=== PATIENT | female | born 1970 ===

== ENCOUNTER 2019-11-22 02:11 | Inpatient (IN) | payer MEDICARE ==
[2019-11-22] MEDS ORDERED: HALOPERIDOL LACTATE 5 MG/1 ML INJ IM PRN (07:22)
[2019-11-22] MEDS ORDERED: LORazepam 2 MG/ML VIAL IM PRN (07:22)
[2019-11-22] MEDS ORDERED: diphenhydrAMINE 50 MG/ML VIAL IM PRN (07:23)
[2019-11-22] MEDS ORDERED: MELATONIN 5 MG TAB PO PRN (20:54)
[2019-11-22] MEDS: carvediloL 25 MG TAB PO SCH (21:53)
[2019-11-22] MEDS: traZODone 50 MG TAB PO SCH (21:55)
[2019-11-22] MEDS ORDERED: risperiDONE 0.25 MG TAB PO SCH (22:00)
[2019-11-22 23:47] LABS: Basophils % (Auto) 0.3 % (0.0-1.8); Eosinophils # (Auto) 0.1 K/mm3 (0.0-0.4); Eosinophils % (Auto) 1.1 % (0.0-4.3); Hematocrit 36.7 % (30.3-42.9); Hemoglobin 11.8 gm/dl (10.1-14.3); Lymphocytes # (Auto) 1.5 K/mm3 (1.2-5.4); Lymphocytes % (Auto) 17.8 % (13.4-35.0); Mean Corpuscular HGB Conc 32 % (30-34); Mean Corpuscular Volume 88 fl (79-97); Monocytes # (Auto) 0.6 K/mm3 (0.0-0.8); Monocytes % (Auto) 7.6 % (0.0-7.3); Platelet Count 257 K/mm3 (140-440); Red Blood Count 4.15 M/mm3 (3.65-5.03); Red Cell Distribution Width 17.9 % (13.2-15.2)
[2019-11-23 00:02] LABS: BUN/Creatinine Ratio 14; Blood Urea Nitrogen 13 mg/dL (7-17); Calcium 8.7 mg/dL (8.4-10.2); Hemolysis Index 3
[2019-11-23 04:15] LABS: Chol/HDL Ratio 4.87 %; HDL Cholesterol 31 mg/dL (40-59); LDL Cholesterol,Direct 106 mg/dL (50-130)
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
[2019-11-23] MEDS: SPIRONOLACTONE 25 MG TAB PO SCH (10:04)
[2019-11-23] MEDS: BENZTROPINE 0.5 MG TAB PO SCH (10:04)
[2019-11-23] MEDS: LISINOPRIL 20 MG TAB PO SCH (10:04)
[2019-11-23] MEDS: carvediloL 25 MG TAB PO SCH ×2 (10:05→21:41)
[2019-11-23] MEDS: DIVALPROEX DR 125 MG TAB PO SCH ×2 (10:10→21:43)
[2019-11-23] MEDS: risperiDONE 0.25 MG TAB PO SCH ×2 (10:10→21:41)
[2019-11-23] MEDS: NICOTINE 21 MG/24 HR PATCH TD SCH (10:10)
--- NOTE | 2019-11-23 10:20 | Consultation ---
History of Present Illness - Reason for Consult Consult date: 11/23/19 Medical management Requesting physician: LONYN CADET - History of Present Illness Patient is a 49 year old female admitted with Paranoid schizophrenia. Per record the patient at outside facility refused to take meds, sighting being and in labor. she was reportedly yelling and cursing at someone who is not there and mumbling with hard to understand words and tangetial speech. accusing the staff of trying to kidnap her. calling staff other peoples names and preoccupied by the name rachana Gooden Labs from transferring facility reviewed. Acute Cystitis Acute Psuchosis SCHIZOPHRENIA/Schizoaffective disorder Pyschosis with Paranopid, Delusional and Bizarre behavior HTN OBESITY Hyperlipidemia Past History Past Medical History: other Past Surgical History: Other ( DOCUMENTED) Social history: no significant social history Family history: no significant family history Medications and Allergies Allergies Allergy/AdvReac Type Severity Reaction Status Date / Time No Known Allergies Allergy Unverified 11/22/19 02:27 Home Medications Medication Instructions Recorded Confirmed Last Taken Type Aspirin 81 mg PO DAILY 11/22/19 11/23/19 Unknown History Atorvastatin [Lipitor Tab] 40 mg PO DAILY 11/22/19 11/22/19 Unknown History Benztropine [Cogentin] 1 mg PO UNK 11/22/19 11/23/19 Unknown History Nitrofurantoin Macrocrystal 100 mg PO Q12H 11/22/19 11/22/19 11/21/19 22:00 History [Nitrofurantoin] 100 MG Spironolactone [Aldactone] 25 mg PO DAILY 11/22/19 11/22/19 Unknown History carvediloL [Coreg] 37.5 mg PO BID 11/22/19 11/22/19 Unknown History lisinopriL [Zestril TAB] 20 mg PO DAILY 11/22/19 11/22/19 Unknown History Montelukast [Singulair] 10 mg PO QPM 11/23/19 11/23/19 Unknown History Active Meds: Active Medications Atorvastatin Calcium (Lipitor) 40 mg PO DAILY [facility] Last Admin: 11/23/19 10:04 Dose: 40 mg Documented by: Benztropine Mesylate (Cogentin) 0.5 mg PO DAILY [facility] Last Admin: 11/23/19 10:04 Dose: 0.5 mg Documented by: Carvedilol (Coreg) 37.5 mg PO BID [facility] Last Admin: 11/23/19 10:05 Dose: 37.5 mg Documented by: Diphenhydramine HCl (Benadryl) 50 mg IM Q6H PRN PRN Reason: agitation Divalproex Sodium (Depakote Dr) 125 mg PO BID [facility] Last Admin: 11/23/19 10:10 Dose: 125 mg Documented by: Haloperidol Lactate (Haldol) 5 mg IM Q6H PRN PRN Reason: Agitation Lisinopril (Zestril) 20 mg PO DAILY [facility] Last Admin: 11/23/19 10:04 Dose: 20 mg Documented by: Lorazepam (Ativan) 2 mg IM Q6H PRN PRN Reason: Agitation Melatonin (Melatonin) 5 mg PO QHS PRN PRN Reason: Sleep Montelukast Sodium (Singulair) 10 mg PO QPM [facility] Nicotine (Habitrol) 21 mg TD QDAY [facility] Last Admin: 11/23/19 10:10 Dose: 21 mg Documented by: Risperidone (Risperdal) 0.5 mg PO BID [facility] Last Admin: 11/23/19 10:10 Dose: 0.5 mg Documented by: Spironolactone (Aldactone) 25 mg PO DAILY [facility] Last Admin: 11/23/19 10:04 Dose: 25 mg Documented by: Trazodone HCl (Desyrel) 50 mg PO QHS [facility] Last Admin: 11/22/19 21:55 Dose: 50 mg Documented by: Review of Systems ROS unobtainable: due to mental status Exam - Physical Exam Narrative exam: VITAL SIGNS: Reviewed. GENERAL: The patient appears normally developed, Vital signs as documented. HEAD: No signs of head trauma. EYES: Pupils are equal. Extraocular motions intact. EARS: Hearing grossly intact. MOUTH: Oropharynx is normal. NECK: No adenopathy, no JVD. CHEST: Chest with clear breath sounds bilaterally. No wheezes, rales, or rhonchi. CARDIAC: Regular rate and rhythm. S1 and S2, without murmurs, gallops, or rubs. VASCULAR: No Edema. Peripheral pulses normal and equal in all extremities. ABDOMEN: Soft, non tender and non distended. No rebound or guarding, and no masses palpated. Bowel Sounds normal. MUSCULOSKELETAL: Good range of motion of all major joints. Extremities without clubbing, cyanosis or edema. NEUROLOGIC EXAM: Alert and oriented x 3 No focal sensory or strength deficits. Speech normal. Follows commands. PSYCHIATRIC: Mood normal. SKIN: detial exam as documented in skin assessment - Constitutional Vitals: Temp Pulse Resp BP Pulse Ox 98.0 F 81 18 127/76 91 11/23/19 08:23 11/23/19 08:23 11/23/19 08:23 11/23/19 08:23 11/23/19 08:23 Results - Labs CBC & Chem 7: 11/22/19 23:07 11/22/19 23:07 Labs: Abnormal lab results 11/22/19 11/22/19 11/22/19 Range/Units 16:46 23:07 23:07 RDW 17.9 H (13.2-15.2) % [place] % (Auto) 7.6 H (0.0-7.3) % Seg Neutrophils % 73.2 H (40.0-70.0) % Glucose 125 H (65-100) mg/dL POC Glucose 115 H (70-105) HDL Cholesterol 31 L (40-59) mg/dL Assessment and Plan Patient is a 49 year old female admitted with Paranoid schizophrenia. Per record the patient at outside facility refused to take meds, sighting being and in labor. she was reportedly yelling and cursing at someone who is not there and mumbling with hard to understand words and tangetial speech. accusing the staff of trying to kidnap her. calling staff other peoples names and preoccupied by the name rachana Gooden Labs from transferring facility reviewed. Acute Cystitis Acute Psychosis SCHIZOPHRENIA/Schizoaffective disorder Pyschosis with Paranopid, Delusional and Bizarre behavior HTN OBESITY Hyperlipidemia Plan Continue current management plan. Check urinalysis Appears patient may have been treated in outside facility We will also check TSH if not already checked Resume appropriate home medications Encourage ambulation for DVT prophylaxis
[2019-11-23] MEDS: MONTELUKAST 10 MG TAB PO SCH (18:05)
[2019-11-23] MEDS: traZODone 50 MG TAB PO SCH (21:43)
--- NOTE | 2019-11-24 07:36 | Progress Note ---
Subjective Date of service: 11/24/19 Principal diagnosis: Acute Psychosis Subjective Comment: The patient's medical record was reviewed and the patient's progress was discussed with the nursing staff. The nurse note states the patient is labile and noted with flat affect. Speech incongruent to situation. During my interview with the patient this morning, she is in her room, awake. She is a/o x 3. Her affect is flat. She's easier to follow today than yesterday. She's more lucid. She believes she's admitted for "stomach cramps." The patient states, "I think I'm ." She says, "they told me not to think like that, but I do." When redirecting the patient and stating to her that she was not , she replies, "Okay, I'm not going to worry you with it." She denies SI/HI. She also denies hallucinations of any kind. She describes her mood, as "okay." She denies any problems with her sleep cycle or appetite. Reason for continued inpatient treatment: The patient is delusional REVIEW OF SYSTEMS Constitutional: Negative for weight loss ENT: Negative for stridor Respiratory: Negative for cough or hemoptysis All other systems reviewed and are negative MENTAL STATUS EXAMINATION General Appearance: Dressed appropriately Behavior: Calm and Cooperative. Fair eye contact. Mood: "okay" Affect: Flat Speech: Normal tome and pace Thought Process: Goal directed Thought Content: Suicidal Ideation: Denies Homicidal Ideation: Denies Hallucinations: Denies Delusions: Yes Insight and Judgment: Limited Memory/Cognition: Limited Assessment Acute Psychosis Treatment Plan Patient will be admitted for inpatient psychiatric evaluation, medication adjustment and close monitoring The patient's behavior, mood, sleep and appetite will be closely monitored. Patient will be enrolled in individual and group therapeutic sessions and encouraged to attend. Patient will be provided with a safe and structured environment. Patient's physical health needs will be addressed by the Hospitalist. Hospitalist Consulted Labs including CBC, CMP, Lipid profile and Hemoglobin A1C ordered Social Assessment will be completed and the Clinical Data Research will work with patient and family to ensure a suitable and safe disposition Medication adjustment will be made as clinically indicated Usual Wellness Yazidism/Preservation: Increase Risperidone 1mg po BID The patient agreed on the treatment plan, understood the risk, benefit, alternative treatment, potential consequence of no treatment, and gave informed consent. Estimated period of time patient will need to remain in the hospital: [5] Plan for post-hospital care: [Outpatient] Medications and Allergies Allergies Allergy/AdvReac Type Severity Reaction Status Date / Time No Known Allergies Allergy Unverified 11/22/19 02:27 Home Medications Medication Instructions Recorded Confirmed Last Taken Type Aspirin 81 mg PO DAILY 11/22/19 11/23/19 Unknown History Atorvastatin [Lipitor Tab] 40 mg PO DAILY 11/22/19 11/22/19 Unknown History Benztropine [Cogentin] 1 mg PO UNK 11/22/19 11/23/19 Unknown History Nitrofurantoin Macrocrystal 100 mg PO Q12H 11/22/19 11/22/19 11/21/19 22:00 History [Nitrofurantoin] 100 MG Spironolactone [Aldactone] 25 mg PO DAILY 11/22/19 11/22/19 Unknown History carvediloL [Coreg] 37.5 mg PO BID 11/22/19 11/22/19 Unknown History lisinopriL [Zestril TAB] 20 mg PO DAILY 11/22/19 11/22/19 Unknown History Montelukast [Singulair] 10 mg PO QPM 11/23/19 11/23/19 Unknown History Active Meds: Active Medications Atorvastatin Calcium (Lipitor) 40 mg PO DAILY [facility] Last Admin: 11/23/19 10:04 Dose: 40 mg Documented by: Benztropine Mesylate (Cogentin) 0.5 mg PO DAILY [facility] Last Admin: 11/23/19 10:04 Dose: 0.5 mg Documented by: Carvedilol (Coreg) 37.5 mg PO BID [facility] Last Admin: 11/23/19 21:41 Dose: 37.5 mg Documented by: Diphenhydramine HCl (Benadryl) 50 mg IM Q6H PRN PRN Reason: agitation Divalproex Sodium (Depakote Dr) 125 mg PO BID [facility] Last Admin: 11/23/19 21:43 Dose: 125 mg Documented by: Haloperidol Lactate (Haldol) 5 mg IM Q6H PRN PRN Reason: Agitation Lisinopril (Zestril) 20 mg PO DAILY [facility] Last Admin: 11/23/19 10:04 Dose: 20 mg Documented by: Lorazepam (Ativan) 2 mg IM Q6H PRN PRN Reason: Agitation Melatonin (Melatonin) 5 mg PO QHS PRN PRN Reason: Sleep Montelukast Sodium (Singulair) 10 mg PO QPM [facility] Last Admin: 11/23/19 18:05 Dose: 10 mg Documented by: Nicotine (Habitrol) 21 mg TD QDAY [facility] Last Admin: 11/23/19 10:10 Dose: 21 mg Documented by: Risperidone (Risperdal) 0.5 mg PO BID [facility] Last Admin: 11/23/19 21:41 Dose: 0.5 mg Documented by: Spironolactone (Aldactone) 25 mg PO DAILY [facility] Last Admin: 11/23/19 10:04 Dose: 25 mg Documented by: Trazodone HCl (Desyrel) 50 mg PO QHS [facility] Last Admin: 11/23/19 21:43 Dose: 50 mg Documented by: Results - Results Labs/Vitals: Laboratory Last Values WBC 8.4 K/mm3 (4.5-11.0) 11/22/19 23:07 RBC 4.15 M/mm3 (3.65-5.03) 11/22/19 23:07 Hgb 11.8 gm/dl (10.1-14.3) 11/22/19 23:07 Hct 36.7 % (30.3-42.9) 11/22/19 23:07 MCV 88 fl (79-97) 11/22/19 23:07 MCH 28 pg (28-32) 11/22/19 23:07 MCHC 32 % (30-34) 11/22/19 23:07 RDW 17.9 % (13.2-15.2) H 11/22/19 23:07 Plt Count 257 K/mm3 (140-440) 11/22/19 23:07 Lymph % (Auto) 17.8 % (13.4-35.0) 11/22/19 23:07 [place] % (Auto) 7.6 % (0.0-7.3) H 11/22/19 23:07 Eos % (Auto) 1.1 % (0.0-4.3) 11/22/19 23:07 Baso % (Auto) 0.3 % (0.0-1.8) 11/22/19 23:07 Lymph # 1.5 K/mm3 (1.2-5.4) 11/22/19 23:07 [place] # 0.6 K/mm3 (0.0-0.8) 11/22/19 23:07 Eos # 0.1 K/mm3 (0.0-0.4) 11/22/19 23:07 Baso # 0.0 K/mm3 (0.0-0.1) 11/22/19 23:07 Seg Neutrophils % 73.2 % (40.0-70.0) H 11/22/19 23:07 Seg Neutrophils # 6.2 K/mm3 (1.8-7.7) 11/22/19 23:07 Sodium 140 mmol/L (137-145) 11/22/19 23:07 Potassium 3.9 mmol/L (3.6-5.0) 11/22/19 23:07 Chloride 103.7 mmol/L (98-107) 11/22/19 23:07 Carbon Dioxide 24 mmol/L (22-30) 11/22/19 23:07 Anion Gap 16 mmol/L 11/22/19 23:07 BUN 13 mg/dL (7-17) 11/22/19 23:07 Creatinine 0.9 mg/dL (0.7-1.2) 11/22/19 23:07 Estimated GFR > 60 ml/min 11/22/19 23:07 BUN/Creatinine Ratio 14 % 11/22/19 23:07 Glucose 125 mg/dL (65-100) H 11/22/19 23:07 POC Glucose 115 (70-105) H 11/22/19 16:46 Hemoglobin A1c 4.8 % (4-6) 11/22/19 23:07 Calcium 8.7 mg/dL (8.4-10.2) 11/22/19 23:07 Triglycerides 95 mg/dL (2-149) 11/22/19 23:07 Cholesterol 151 mg/dL (50-199) 11/22/19 23:07 LDL Cholesterol Direct 106 mg/dL (50-130) 11/22/19 23:07 HDL Cholesterol 31 mg/dL (40-59) L 11/22/19 23:07 Cholesterol/HDL Ratio 4.87 % 11/22/19 23:07 TSH 2.690 mlU/mL (0.270-4.200) 11/22/19 23:07 Last Vital Signs Temp 98.9 F 11/23/19 19:30 Pulse 79 11/23/19 21:41 Resp 20 11/23/19 19:30 BP 154/100 11/23/19 21:41 Pulse Ox 94 11/23/19 19:30
[2019-11-24] MEDS ORDERED: risperiDONE 0.25 MG TAB PO SCH (07:45)
[2019-11-24] MEDS: risperiDONE 1 MG TAB PO SCH ×2 (11:43→21:03)
[2019-11-24] MEDS: BENZTROPINE 0.5 MG TAB PO SCH (11:43)
[2019-11-24] MEDS: SPIRONOLACTONE 25 MG TAB PO SCH (11:44)
[2019-11-24] MEDS: DIVALPROEX DR 125 MG TAB PO SCH ×2 (11:44→21:03)
[2019-11-24] MEDS: carvediloL 25 MG TAB PO SCH ×2 (11:45→21:04)
[2019-11-24] MEDS: NICOTINE 21 MG/24 HR PATCH TD SCH (11:46)
[2019-11-24] MEDS: LISINOPRIL 20 MG TAB PO SCH (11:46)
[2019-11-24] MEDS ORDERED: PALIPERIDONE PALMITATE 234 MG/1.5 ML SYRINGE IM ONE (15:00)
[2019-11-24] MEDS: MONTELUKAST 10 MG TAB PO SCH (17:11)
[2019-11-24] MEDS: traZODone 50 MG TAB PO SCH (21:03)
--- NOTE | 2019-11-25 08:02 | Progress Note ---
Subjective Date of service: 11/25/19 Principal diagnosis: Acute Psychosis Subjective Comment: The patient's medical record was reviewed and the patient's progress was discussed with the nursing staff. During my interview with the patient this morning, she is sitting in the dayroom. She waves at me as I'm walking up. She makes good eye contact. She is calm and cooperative. She is delusional. The patient's conversations is nonsensical. When asking the patient how was she feeling, she states, "alright," but states "I'm having cramps." She then says, "I feel a weak blood pressure. It's the weakest I can have." She then starts telling me "I didn't have a period for a lot of years. I missed about 5." She then says, that's why I thought I was ." She says, "I saw a strange thing on a chicken. That's what caused me to miss all those periods." The patient denies hallucinations of any kind. She also denies SI/HI, stating "I aint never really wanted to hurt myself." Reason for continued inpatient treatment: The patient is delusional REVIEW OF SYSTEMS Constitutional: Negative for weight loss ENT: Negative for stridor Respiratory: Negative for cough or hemoptysis All other systems reviewed and are negative MENTAL STATUS EXAMINATION General Appearance: Dressed appropriately Behavior: Calm and Cooperative. Good eye contact. Mood: "alright" Affect: Congruent with stated mood Speech: Normal tome and pace Thought Process: Goal directed Thought Content: Suicidal Ideation: Denies Homicidal Ideation: Denies Hallucinations: Denies Delusions: Yes Insight and Judgment: Limited Memory/Cognition: Limited Assessment Acute Psychosis Treatment Plan Patient will be admitted for inpatient psychiatric evaluation, medication adjustment and close monitoring The patient's behavior, mood, sleep and appetite will be closely monitored. Patient will be enrolled in individual and group therapeutic sessions and encouraged to attend. Patient will be provided with a safe and structured environment. Patient's physical health needs will be addressed by the Hospitalist. Hospitalist Consulted Labs including CBC, CMP, Lipid profile and Hemoglobin A1C ordered Social Assessment will be completed and the Packaging [employer] Supplies Distributor will work with patient and family to ensure a suitable and safe disposition Medication adjustment will be made as clinically indicated Usual Wellness Latter Day/Preservation: Increase Risperidone 2mg po BID Increased Depakote 250mg po BID The patient agreed on the treatment plan, understood the risk, benefit, alternative treatment, potential consequence of no treatment, and gave informed consent. Estimated period of time patient will need to remain in the hospital: [3] Plan for post-hospital care: [Outpatient] Medications and Allergies Allergies Allergy/AdvReac Type Severity Reaction Status Date / Time No Known Allergies Allergy Unverified 11/22/19 02:27 Home Medications Medication Instructions Recorded Confirmed Last Taken Type Aspirin 81 mg PO DAILY 11/22/19 11/23/19 Unknown History Atorvastatin [Lipitor Tab] 40 mg PO DAILY 11/22/19 11/22/19 Unknown History Benztropine [Cogentin] 1 mg PO UNK 11/22/19 11/23/19 Unknown History Nitrofurantoin Macrocrystal 100 mg PO Q12H 11/22/19 11/22/19 11/21/19 22:00 History [Nitrofurantoin] 100 MG Spironolactone [Aldactone] 25 mg PO DAILY 11/22/19 11/22/19 Unknown History carvediloL [Coreg] 37.5 mg PO BID 11/22/19 11/22/19 Unknown History lisinopriL [Zestril TAB] 20 mg PO DAILY 11/22/19 11/22/19 Unknown History Montelukast [Singulair] 10 mg PO QPM 11/23/19 11/23/19 Unknown History Active Meds: Active Medications Atorvastatin Calcium (Lipitor) 40 mg PO DAILY [facility] Last Admin: 11/24/19 11:43 Dose: 40 mg Documented by: Benztropine Mesylate (Cogentin) 0.5 mg PO DAILY [facility] Last Admin: 11/24/19 11:43 Dose: 0.5 mg Documented by: Carvedilol (Coreg) 37.5 mg PO BID [facility] Last Admin: 11/24/19 21:04 Dose: 37.5 mg Documented by: Diphenhydramine HCl (Benadryl) 50 mg IM Q6H PRN PRN Reason: agitation Divalproex Sodium (Depakote Dr) 125 mg PO BID [facility] Last Admin: 11/24/19 21:03 Dose: 125 mg Documented by: Haloperidol Lactate (Haldol) 5 mg IM Q6H PRN PRN Reason: Agitation Lisinopril (Zestril) 20 mg PO DAILY [facility] Last Admin: 11/24/19 11:46 Dose: 20 mg Documented by: Lorazepam (Ativan) 2 mg IM Q6H PRN PRN Reason: Agitation Melatonin (Melatonin) 5 mg PO QHS PRN PRN Reason: Sleep Montelukast Sodium (Singulair) 10 mg PO QPM [facility] Last Admin: 11/24/19 17:11 Dose: 10 mg Documented by: Nicotine (Habitrol) 21 mg TD QDAY [facility] Last Admin: 11/24/19 11:46 Dose: 21 mg Documented by: Risperidone (Risperdal) 1 mg PO BID [facility] Last Admin: 11/24/19 21:03 Dose: 1 mg Documented by: Spironolactone (Aldactone) 25 mg PO DAILY [facility] Last Admin: 11/24/19 11:44 Dose: 25 mg Documented by: Trazodone HCl (Desyrel) 50 mg PO QHS [facility] Last Admin: 11/24/19 21:03 Dose: 50 mg Documented by: Results - Results Labs/Vitals: Laboratory Last Values WBC 8.4 K/mm3 (4.5-11.0) 11/22/19 23:07 RBC 4.15 M/mm3 (3.65-5.03) 11/22/19 23:07 Hgb 11.8 gm/dl (10.1-14.3) 11/22/19 23:07 Hct 36.7 % (30.3-42.9) 11/22/19 23:07 MCV 88 fl (79-97) 11/22/19 23:07 MCH 28 pg (28-32) 11/22/19 23:07 MCHC 32 % (30-34) 11/22/19 23:07 RDW 17.9 % (13.2-15.2) H 11/22/19 23:07 Plt Count 257 K/mm3 (140-440) 11/22/19 23:07 Lymph % (Auto) 17.8 % (13.4-35.0) 11/22/19 23:07 [place] % (Auto) 7.6 % (0.0-7.3) H 11/22/19 23:07 Eos % (Auto) 1.1 % (0.0-4.3) 11/22/19 23:07 Baso % (Auto) 0.3 % (0.0-1.8) 11/22/19 23:07 Lymph # 1.5 K/mm3 (1.2-5.4) 11/22/19 23:07 [place] # 0.6 K/mm3 (0.0-0.8) 11/22/19 23:07 Eos # 0.1 K/mm3 (0.0-0.4) 11/22/19 23:07 Baso # 0.0 K/mm3 (0.0-0.1) 11/22/19 23:07 Seg Neutrophils % 73.2 % (40.0-70.0) H 11/22/19 23:07 Seg Neutrophils # 6.2 K/mm3 (1.8-7.7) 11/22/19 23:07 Sodium 140 mmol/L (137-145) 11/22/19 23:07 Potassium 3.9 mmol/L (3.6-5.0) 11/22/19 23:07 Chloride 103.7 mmol/L (98-107) 11/22/19 23:07 Carbon Dioxide 24 mmol/L (22-30) 11/22/19 23:07 Anion Gap 16 mmol/L 11/22/19 23:07 BUN 13 mg/dL (7-17) 11/22/19 23:07 Creatinine 0.9 mg/dL (0.7-1.2) 11/22/19 23:07 Estimated GFR > 60 ml/min 11/22/19 23:07 BUN/Creatinine Ratio 14 % 11/22/19 23:07 Glucose 125 mg/dL (65-100) H 11/22/19 23:07 POC Glucose 115 (70-105) H 11/22/19 16:46 Hemoglobin A1c 4.8 % (4-6) 11/22/19 23:07 Calcium 8.7 mg/dL (8.4-10.2) 11/22/19 23:07 Triglycerides 95 mg/dL (2-149) 11/22/19 23:07 Cholesterol 151 mg/dL (50-199) 11/22/19 23:07 LDL Cholesterol Direct 106 mg/dL (50-130) 11/22/19 23:07 HDL Cholesterol 31 mg/dL (40-59) L 11/22/19 23:07 Cholesterol/HDL Ratio 4.87 % 11/22/19 23:07 TSH 2.690 mlU/mL (0.270-4.200) 11/22/19 23:07 Last Vital Signs Temp 98.9 F 11/24/19 20:13 Pulse 76 11/24/19 21:04 Resp 18 11/24/19 20:13 BP 146/105 11/24/19 21:04 Pulse Ox 98 11/24/19 20:13
[2019-11-25] MEDS ORDERED: DIVALPROEX DR 125 MG TAB PO SCH (10:00)
[2019-11-25] MEDS: NICOTINE 21 MG/24 HR PATCH TD SCH (10:58)
[2019-11-25] MEDS: SPIRONOLACTONE 25 MG TAB PO SCH (10:58)
[2019-11-25] MEDS: BENZTROPINE 0.5 MG TAB PO SCH (10:59)
[2019-11-25] MEDS: LISINOPRIL 20 MG TAB PO SCH (10:59)
[2019-11-25] MEDS: risperiDONE 1 MG TAB PO SCH ×2 (11:00→21:12)
[2019-11-25] MEDS: carvediloL 25 MG TAB PO SCH ×2 (11:00→21:10)
[2019-11-25 12:40] LABS: Bilirubin,Urine NEG (Negative); Blood,Urine NEG (Negative); Color,Urine Yellow (Yellow); Mucus,Urine FEW /HPF; Protein,Urine <15 mg/dL mg/dL (Negative); Urobilinogen,Urine < 2.0 mg/dL (<2.0)
[2019-11-25] MEDS: DIVALPROEX DR 250 MG TAB PO SCH ×2 (14:04→21:10)
[2019-11-25] MEDS: MONTELUKAST 10 MG TAB PO SCH (18:01)
[2019-11-25] MEDS: traZODone 50 MG TAB PO SCH (21:10)
--- NOTE | 2019-11-26 07:02 | Progress Note ---
Subjective Date of service: 11/26/19 Principal diagnosis: Acute Psychosis Subjective Comment: Per Psych Nurse: pt received in her room w/ HOB elevated, bed in low position and bed alarm on for safety. Pt A&O to person, place and situation. Pt denies SI/HI and AVH. close monitoring continues Psych Progress HPI Patient seen this AM, in room, sleepy, slight confused and not wanting to be interviewed this AM. Reason for continuing inpatient treatment: Persistent delusional state, cotninue to observe for medication efficacy and adjust as needed. Check Valproate levels in 2 days REVIEW OF SYSTEMS Constitutional: Negative for weight loss ENT: Negative for stridor Respiratory: Negative for cough or hemoptysis All other systems reviewed and are negative MENTAL STATUS EXAMINATION General Appearance: sleepy, dressed appropriately Behavior: Calm Mood: unaccessible Affect: unaccessible Speech: Normal tone Thought Process: unaccessible Thought Content: unaccessible Suicidal Ideation: unaccessible Homicidal Ideation: unaccessible Hallucinations: unaccessible Delusions: Yes Insight and Judgment: Limited Memory/Cognition: Limited Treatment Plan: Continue current meds Due to the psychiatric conditions and treatment listed in the Assessment and Plan - the patient requires continued hospitalization. Will continue inpatient treatment to allow for medication adjustment and monitoring. Will continue q15 min safety checks. Will encourage the use of environmental modifications and non-pharmacologic approaches for the management of behavioral and psychological symptoms. Will continue current psych medications Monitor for medication side effects. Most recent medication adjustments: The patient will continue on medications for physical illnesses, and Hospitalist will closely monitor these Continue intensive physical and occupational therapies. Monitor patient's mood, sleep, appetite, and behavior closely. Encourage patient to participate in individual and group therapeutic sessions on the [place]. Will provide a safe and therapeutic environment for patient. The patient agreed on the treatment plan, understood the risk, benefit, alternative treatment, potential consequence of no treatment, and gave informed consent. Estimated period of time patient will need to remain in the hospital: [2] Plan for post-hospital care: [Outpatient] Medications and Allergies Allergies Allergy/AdvReac Type Severity Reaction Status Date / Time No Known Allergies Allergy Unverified 11/22/19 02:27 Home Medications Medication Instructions Recorded Confirmed Last Taken Type Aspirin 81 mg PO DAILY 11/22/19 11/23/19 Unknown History Atorvastatin [Lipitor Tab] 40 mg PO DAILY 11/22/19 11/22/19 Unknown History Benztropine [Cogentin] 1 mg PO UNK 11/22/19 11/23/19 Unknown History Nitrofurantoin Macrocrystal 100 mg PO Q12H 11/22/19 11/22/19 11/21/19 22:00 History [Nitrofurantoin] 100 MG Spironolactone [Aldactone] 25 mg PO DAILY 11/22/19 11/22/19 Unknown History carvediloL [Coreg] 37.5 mg PO BID 11/22/19 11/22/19 Unknown History lisinopriL [Zestril TAB] 20 mg PO DAILY 11/22/19 11/22/19 Unknown History Montelukast [Singulair] 10 mg PO QPM 11/23/19 11/23/19 Unknown History Active Meds: Active Medications Atorvastatin Calcium (Lipitor) 40 mg PO DAILY [facility] Last Admin: 11/25/19 11:00 Dose: 40 mg Documented by: Benztropine Mesylate (Cogentin) 0.5 mg PO DAILY [facility] Last Admin: 11/25/19 10:59 Dose: 0.5 mg Documented by: Carvedilol (Coreg) 37.5 mg PO BID [facility] Last Admin: 11/25/19 21:10 Dose: 37.5 mg Documented by: Diphenhydramine HCl (Benadryl) 50 mg IM Q6H PRN PRN Reason: agitation Divalproex Sodium (Depakote Dr) 250 mg PO BID [facility] Last Admin: 11/25/19 21:10 Dose: 250 mg Documented by: Haloperidol Lactate (Haldol) 5 mg IM Q6H PRN PRN Reason: Agitation Lisinopril (Zestril) 20 mg PO DAILY [facility] Last Admin: 11/25/19 10:59 Dose: 20 mg Documented by: Lorazepam (Ativan) 2 mg IM Q6H PRN PRN Reason: Agitation Melatonin (Melatonin) 5 mg PO QHS PRN PRN Reason: Sleep Montelukast Sodium (Singulair) 10 mg PO QPM [facility] Last Admin: 11/24/19 17:11 Dose: 10 mg Documented by: Nicotine (Habitrol) 21 mg TD QDAY [facility] Last Admin: 11/25/19 10:58 Dose: 21 mg Documented by: Risperidone (Risperdal) 2 mg PO BID [facility] Last Admin: 11/25/19 21:12 Dose: 2 mg Documented by: Spironolactone (Aldactone) 25 mg PO DAILY [facility] Last Admin: 11/25/19 10:58 Dose: 25 mg Documented by: Trazodone HCl (Desyrel) 50 mg PO QHS [facility] Last Admin: 11/25/19 21:10 Dose: 50 mg Documented by: Results - Results Labs/Vitals: Laboratory Last Values WBC 8.4 K/mm3 (4.5-11.0) 11/22/19 23:07 RBC 4.15 M/mm3 (3.65-5.03) 11/22/19 23:07 Hgb 11.8 gm/dl (10.1-14.3) 11/22/19 23:07 Hct 36.7 % (30.3-42.9) 11/22/19 23:07 MCV 88 fl (79-97) 11/22/19 23:07 MCH 28 pg (28-32) 11/22/19 23:07 MCHC 32 % (30-34) 11/22/19 23:07 RDW 17.9 % (13.2-15.2) H 11/22/19 23:07 Plt Count 257 K/mm3 (140-440) 11/22/19 23:07 Lymph % (Auto) 17.8 % (13.4-35.0) 11/22/19 23:07 [place] % (Auto) 7.6 % (0.0-7.3) H 11/22/19 23:07 Eos % (Auto) 1.1 % (0.0-4.3) 11/22/19 23:07 Baso % (Auto) 0.3 % (0.0-1.8) 11/22/19 23:07 Lymph # 1.5 K/mm3 (1.2-5.4) 11/22/19 23:07 [place] # 0.6 K/mm3 (0.0-0.8) 11/22/19 23:07 Eos # 0.1 K/mm3 (0.0-0.4) 11/22/19 23:07 Baso # 0.0 K/mm3 (0.0-0.1) 11/22/19 23:07 Seg Neutrophils % 73.2 % (40.0-70.0) H 11/22/19 23:07 Seg Neutrophils # 6.2 K/mm3 (1.8-7.7) 11/22/19 23:07 Sodium 140 mmol/L (137-145) 11/22/19 23:07 Potassium 3.9 mmol/L (3.6-5.0) 11/22/19 23:07 Chloride 103.7 mmol/L (98-107) 11/22/19 23:07 Carbon Dioxide 24 mmol/L (22-30) 11/22/19 23:07 Anion Gap 16 mmol/L 11/22/19 23:07 BUN 13 mg/dL (7-17) 11/22/19 23:07 Creatinine 0.9 mg/dL (0.7-1.2) 11/22/19 23:07 Estimated GFR > 60 ml/min 11/22/19 23:07 BUN/Creatinine Ratio 14 % 11/22/19 23:07 Glucose 125 mg/dL (65-100) H 11/22/19 23:07 POC Glucose 115 (70-105) H 11/22/19 16:46 Hemoglobin A1c 4.8 % (4-6) 11/22/19 23:07 Calcium 8.7 mg/dL (8.4-10.2) 11/22/19 23:07 Triglycerides 95 mg/dL (2-149) 11/22/19 23:07 Cholesterol 151 mg/dL (50-199) 11/22/19 23:07 LDL Cholesterol Direct 106 mg/dL (50-130) 11/22/19 23:07 HDL Cholesterol 31 mg/dL (40-59) L 11/22/19 23:07 Cholesterol/HDL Ratio 4.87 % 11/22/19 23:07 TSH 2.690 mlU/mL (0.270-4.200) 11/22/19 23:07 Urine Color Yellow (Yellow) 11/25/19 Unknown Urine Turbidity Clear (Clear) 11/25/19 Unknown Urine pH 6.0 (5.0-7.0) 11/25/19 Unknown Ur Specific [place] 1.014 (1.003-1.030) 11/25/19 Unknown Urine Protein <15 mg/dl mg/dL (Negative) 11/25/19 Unknown Urine Glucose (UA) Neg mg/dL (Negative) 11/25/19 Unknown Urine Ketones Neg mg/dL (Negative) 11/25/19 Unknown Urine Blood Neg (Negative) 11/25/19 Unknown Urine Nitrite Neg (Negative) 11/25/19 Unknown Urine Bilirubin Neg (Negative) 11/25/19 Unknown Urine Urobilinogen < 2.0 mg/dL (<2.0) 11/25/19 Unknown Ur Leukocyte Esterase Lg (Negative) 11/25/19 Unknown Urine WBC (Auto) 9.0 /HPF (0.0-6.0) H 11/25/19 Unknown Urine RBC (Auto) 5.0 /HPF (0.0-6.0) 11/25/19 Unknown U Epithel Cells (Auto) 6.0 /HPF (0-13.0) 11/25/19 Unknown Urine Mucus Few /HPF 11/25/19 Unknown Last Vital Signs Temp 98.8 F 11/25/19 20:00 Pulse 76 11/25/19 21:10 Resp 18 11/25/19 20:00 BP 147/102 11/25/19 21:10 Pulse Ox 95 11/25/19 20:00
[2019-11-26] MEDS: carvediloL 25 MG TAB PO SCH ×2 (09:45→21:44)
[2019-11-26] MEDS: BENZTROPINE 0.5 MG TAB PO SCH (09:45)
[2019-11-26] MEDS: LISINOPRIL 20 MG TAB PO SCH (09:46)
[2019-11-26] MEDS: DIVALPROEX DR 250 MG TAB PO SCH (09:46)
[2019-11-26] MEDS: NICOTINE 21 MG/24 HR PATCH TD SCH (09:47)
[2019-11-26] MEDS: SPIRONOLACTONE 25 MG TAB PO SCH (10:15)
[2019-11-26] MEDS: risperiDONE 1 MG TAB PO SCH ×2 (10:16→21:43)
[2019-11-26] MEDS: MONTELUKAST 10 MG TAB PO SCH (17:05)
[2019-11-26] MEDS: traZODone 50 MG TAB PO SCH (21:44)
[2019-11-27] MEDS: DIVALPROEX DR 250 MG TAB PO SCH ×3 (05:08→21:56)
--- NOTE | 2019-11-27 06:59 | Progress Note ---
Subjective Date of service: 11/27/19 Principal diagnosis: Acute Psychosis Subjective Comment: Per Psych Nurse: Patient smiles on approach. She looks down while talking. Patient didn't share a lot of information. She does deny si/hi/ah/vh. She admits to experiencing delusions at times but wouldn't discuss it. She was medication compliant. Patient slept the entire night. Will continue to monitor patient for safety. Psych Progress HPI Patient up and awake today, says she knows she is in the hospital, reports sleeping well and eating good. Patient says she wants Nayla, that nayla is her whom she lives with, she then went on saying she had told Nayla she has an appointment here on and Nayla has been calling around to know where she is. She denies any AVH. Reason for continuing inpatient treatment: Persistent delusional state, recent dose adjustment 2 days ago. Will continue to observe for medication efficacy and adjust as needed. Check Valproate levels in 2 days MENTAL STATUS EXAMINATION General Appearance: sleepy, dressed appropriately Behavior: Calm Mood: unaccessible Affect: unaccessible Speech: Normal tone Thought Process: unaccessible Thought Content: unaccessible Suicidal Ideation: unaccessible Homicidal Ideation: unaccessible Hallucinations: unaccessible Delusions: Yes Insight and Judgment: Limited Memory/Cognition: Limited Treatment Plan: Continue current meds Due to the psychiatric conditions and treatment listed in the Assessment and Plan - the patient requires continued hospitalization. Will continue inpatient treatment to allow for medication adjustment and monitoring. Will continue q15 min safety checks. Will encourage the use of environmental modifications and non-pharmacologic approaches for the management of behavioral and psychological symptoms. Will continue current psych medications Monitor for medication side effects. Most recent medication adjustments: The patient will continue on medications for physical illnesses, and Hospitalist will closely monitor these Continue intensive physical and occupational therapies. Monitor patient's mood, sleep, appetite, and behavior closely. Encourage patient to participate in individual and group therapeutic sessions on the [place]. Will provide a safe and therapeutic environment for patient. The patient agreed on the treatment plan, understood the risk, benefit, alternative treatment, potential consequence of no treatment, and gave informed consent. Estimated period of time patient will need to remain in the hospital: [1] Plan for post-hospital care: [Outpatient] Medications and Allergies Allergies Allergy/AdvReac Type Severity Reaction Status Date / Time No Known Allergies Allergy Unverified 11/22/19 02:27 Home Medications Medication Instructions Recorded Confirmed Last Taken Type Aspirin 81 mg PO DAILY 11/22/19 11/23/19 Unknown History Atorvastatin [Lipitor Tab] 40 mg PO DAILY 11/22/19 11/22/19 Unknown History Benztropine [Cogentin] 1 mg PO UNK 11/22/19 11/23/19 Unknown History Nitrofurantoin Macrocrystal 100 mg PO Q12H 11/22/19 11/22/19 11/21/19 22:00 History [Nitrofurantoin] 100 MG Spironolactone [Aldactone] 25 mg PO DAILY 11/22/19 11/22/19 Unknown History carvediloL [Coreg] 37.5 mg PO BID 11/22/19 11/22/19 Unknown History lisinopriL [Zestril TAB] 20 mg PO DAILY 11/22/19 11/22/19 Unknown History Montelukast [Singulair] 10 mg PO QPM 11/23/19 11/23/19 Unknown History Active Meds: Active Medications Atorvastatin Calcium (Lipitor) 40 mg PO DAILY [facility] Last Admin: 11/26/19 09:45 Dose: 40 mg Documented by: Benztropine Mesylate (Cogentin) 0.5 mg PO DAILY [facility] Last Admin: 11/26/19 09:45 Dose: 0.5 mg Documented by: Carvedilol (Coreg) 37.5 mg PO BID [facility] Last Admin: 11/26/19 21:44 Dose: 37.5 mg Documented by: Diphenhydramine HCl (Benadryl) 50 mg IM Q6H PRN PRN Reason: agitation Divalproex Sodium (Depakote Dr) 250 mg PO BID [facility] Last Admin: 11/27/19 05:08 Dose: 250 mg Documented by: Haloperidol Lactate (Haldol) 5 mg IM Q6H PRN PRN Reason: Agitation Lisinopril (Zestril) 20 mg PO DAILY [facility] Last Admin: 11/26/19 09:46 Dose: 20 mg Documented by: Lorazepam (Ativan) 2 mg IM Q6H PRN PRN Reason: Agitation Melatonin (Melatonin) 5 mg PO QHS PRN PRN Reason: Sleep Montelukast Sodium (Singulair) 10 mg PO QPM [facility] Last Admin: 11/26/19 17:05 Dose: 10 mg Documented by: Nicotine (Habitrol) 21 mg TD QDAY [facility] Last Admin: 11/26/19 09:47 Dose: 21 mg Documented by: Risperidone (Risperdal) 2 mg PO BID [facility] Last Admin: 11/26/19 21:43 Dose: 2 mg Documented by: Spironolactone (Aldactone) 25 mg PO DAILY [facility] Last Admin: 11/26/19 10:15 Dose: 25 mg Documented by: Trazodone HCl (Desyrel) 50 mg PO QHS [facility] Last Admin: 11/26/19 21:44 Dose: 50 mg Documented by: Results - Results Labs/Vitals: Laboratory Last Values WBC 8.4 K/mm3 (4.5-11.0) 11/22/19 23:07 RBC 4.15 M/mm3 (3.65-5.03) 11/22/19 23:07 Hgb 11.8 gm/dl (10.1-14.3) 11/22/19 23:07 Hct 36.7 % (30.3-42.9) 11/22/19 23:07 MCV 88 fl (79-97) 11/22/19 23:07 MCH 28 pg (28-32) 11/22/19 23:07 MCHC 32 % (30-34) 11/22/19 23:07 RDW 17.9 % (13.2-15.2) H 11/22/19 23:07 Plt Count 257 K/mm3 (140-440) 11/22/19 23:07 Lymph % (Auto) 17.8 % (13.4-35.0) 11/22/19 23:07 [place] % (Auto) 7.6 % (0.0-7.3) H 11/22/19 23:07 Eos % (Auto) 1.1 % (0.0-4.3) 11/22/19 23:07 Baso % (Auto) 0.3 % (0.0-1.8) 11/22/19 23:07 Lymph # 1.5 K/mm3 (1.2-5.4) 11/22/19 23:07 [place] # 0.6 K/mm3 (0.0-0.8) 11/22/19 23:07 Eos # 0.1 K/mm3 (0.0-0.4) 11/22/19 23:07 Baso # 0.0 K/mm3 (0.0-0.1) 11/22/19 23:07 Seg Neutrophils % 73.2 % (40.0-70.0) H 11/22/19 23:07 Seg Neutrophils # 6.2 K/mm3 (1.8-7.7) 11/22/19 23:07 Sodium 140 mmol/L (137-145) 11/22/19 23:07 Potassium 3.9 mmol/L (3.6-5.0) 11/22/19 23:07 Chloride 103.7 mmol/L (98-107) 11/22/19 23:07 Carbon Dioxide 24 mmol/L (22-30) 11/22/19 23:07 Anion Gap 16 mmol/L 11/22/19 23:07 BUN 13 mg/dL (7-17) 11/22/19 23:07 Creatinine 0.9 mg/dL (0.7-1.2) 11/22/19 23:07 Estimated GFR > 60 ml/min 11/22/19 23:07 BUN/Creatinine Ratio 14 % 11/22/19 23:07 Glucose 125 mg/dL (65-100) H 11/22/19 23:07 POC Glucose 115 (70-105) H 11/22/19 16:46 Hemoglobin A1c 4.8 % (4-6) 11/22/19 23:07 Calcium 8.7 mg/dL (8.4-10.2) 11/22/19 23:07 Triglycerides 95 mg/dL (2-149) 11/22/19 23:07 Cholesterol 151 mg/dL (50-199) 11/22/19 23:07 LDL Cholesterol Direct 106 mg/dL (50-130) 11/22/19 23:07 HDL Cholesterol 31 mg/dL (40-59) L 11/22/19 23:07 Cholesterol/HDL Ratio 4.87 % 11/22/19 23:07 TSH 2.690 mlU/mL (0.270-4.200) 11/22/19 23:07 Urine Color Yellow (Yellow) 11/25/19 Unknown Urine Turbidity Clear (Clear) 11/25/19 Unknown Urine pH 6.0 (5.0-7.0) 11/25/19 Unknown Ur Specific [place] 1.014 (1.003-1.030) 11/25/19 Unknown Urine Protein <15 mg/dl mg/dL (Negative) 11/25/19 Unknown Urine Glucose (UA) Neg mg/dL (Negative) 11/25/19 Unknown Urine Ketones Neg mg/dL (Negative) 11/25/19 Unknown Urine Blood Neg (Negative) 11/25/19 Unknown Urine Nitrite Neg (Negative) 11/25/19 Unknown Urine Bilirubin Neg (Negative) 11/25/19 Unknown Urine Urobilinogen < 2.0 mg/dL (<2.0) 11/25/19 Unknown Ur Leukocyte Esterase Lg (Negative) 11/25/19 Unknown Urine WBC (Auto) 9.0 /HPF (0.0-6.0) H 11/25/19 Unknown Urine RBC (Auto) 5.0 /HPF (0.0-6.0) 11/25/19 Unknown U Epithel Cells (Auto) 6.0 /HPF (0-13.0) 11/25/19 Unknown Urine Mucus Few /HPF 11/25/19 Unknown Last Vital Signs Temp 99.2 F 11/26/19 22:00 Pulse 71 11/26/19 21:44 Resp 18 11/26/19 22:00 BP 125/73 11/26/19 21:44 Pulse Ox 100 11/26/19 19:36
[2019-11-27] MEDS: BENZTROPINE 0.5 MG TAB PO SCH (09:34)
[2019-11-27] MEDS: NICOTINE 21 MG/24 HR PATCH TD SCH (09:34)
[2019-11-27] MEDS: carvediloL 25 MG TAB PO SCH ×2 (09:40→21:54)
[2019-11-27] MEDS: LISINOPRIL 20 MG TAB PO SCH (09:41)
[2019-11-27] MEDS: SPIRONOLACTONE 25 MG TAB PO SCH (09:41)
[2019-11-27] MEDS: risperiDONE 1 MG TAB PO SCH ×2 (09:59→21:56)
[2019-11-27] MEDS: MONTELUKAST 10 MG TAB PO SCH (17:30)
[2019-11-27] MEDS: traZODone 50 MG TAB PO SCH (21:54)
--- NOTE | 2019-11-28 06:52 | Progress Note ---
Subjective Date of service: 11/28/19 Principal diagnosis: Acute Psychosis Subjective Comment: Per Psych Nurse: Patient is calm, cooperative with staff and peers, pt is compliant with medications. Patient sometime isolate self,pt is still delusional, pt state she is denies si/hi, will continue to monitor. Psych Progress HPI Patient awake and up in breakfast room, she reports waking up early and feeling hungry after she noticed the morning brightneess outside. She describes her mood today as "feeling alright" and ready to go home. When asked what she would like to do after she gets home patient replied" I just want to go home, sit in couch and watch TV. She reports missing Jenifer today, endorses good sleeping habits and complaint with taking meds. Patient has no Grandiosity, no flight of ideas and no irritability noted, pt also sleeping well. No acute manic episode. No AVH reported but still delusional. Reason for continuing inpatient treatment: Persistent delusional state, check Valproate levels today. Will continue to observe for medication efficacy and adjust as needed. MENTAL STATUS EXAMINATION General Appearance and Behavior: Age appropriate, good hygiene, wearing appropriate clothes, good eye contact, cooperativewith questioning and polite Cooperation: Participating/engaged Psychomotor Behavior: unremarkable and within normal limits Mood: "feeling better" Affect and affective range: congruent with mood Thought Process: Fluent/Logical, Circumstantial Thought Content: Within reality Speech: Normal volume, Regular rate and rhythm Intellectual Functioning: Average Suicidal Ideation: Denies SI Homicidal Ideation: Denies HI Impulse Control: Impaired Insight and Judgment:Fair insight and judgment Memory: Normal Attention: Normal Orientation: Alert, oriented Treatment Plan: Depakote increased to TID, check valproate levels today Due to the psychiatric conditions and treatment listed in the Assessment and Plan - the patient requires continued hospitalization. Will continue inpatient treatment to allow for medication adjustment and monitoring. Will continue q15 min safety checks. Will encourage the use of environmental modifications and non-pharmacologic approaches for the management of behavioral and psychological symptoms. Will continue current psych medications Monitor for medication side effects. Most recent medication adjustments: The patient will continue on medications for physical illnesses, and Hospitalist will closely monitor these Continue intensive physical and occupational therapies. Monitor patient's mood, sleep, appetite, and behavior closely. Encourage patient to participate in individual and group therapeutic sessions on the [place]. Will provide a safe and therapeutic environment for patient. The patient agreed on the treatment plan, understood the risk, benefit, alternative treatment, potential consequence of no treatment, and gave informed consent. Estimated period of time patient will need to remain in the hospital: [1] Plan for post-hospital care: [Outpatient] Medications and Allergies Allergies Allergy/AdvReac Type Severity Reaction Status Date / Time No Known Allergies Allergy Unverified 11/22/19 02:27 Home Medications Medication Instructions Recorded Confirmed Last Taken Type Aspirin 81 mg PO DAILY 11/22/19 11/23/19 Unknown History Atorvastatin [Lipitor Tab] 40 mg PO DAILY 11/22/19 11/22/19 Unknown History Benztropine [Cogentin] 1 mg PO UNK 11/22/19 11/23/19 Unknown History Nitrofurantoin Macrocrystal 100 mg PO Q12H 11/22/19 11/22/19 11/21/19 22:00 History [Nitrofurantoin] 100 MG Spironolactone [Aldactone] 25 mg PO DAILY 11/22/19 11/22/19 Unknown History carvediloL [Coreg] 37.5 mg PO BID 11/22/19 11/22/19 Unknown History lisinopriL [Zestril TAB] 20 mg PO DAILY 11/22/19 11/22/19 Unknown History Montelukast [Singulair] 10 mg PO QPM 11/23/19 11/23/19 Unknown History Active Meds: Active Medications Atorvastatin Calcium (Lipitor) 40 mg PO DAILY [facility] Last Admin: 11/27/19 09:34 Dose: 40 mg Documented by: Benztropine Mesylate (Cogentin) 0.5 mg PO DAILY [facility] Last Admin: 11/27/19 09:34 Dose: 0.5 mg Documented by: Carvedilol (Coreg) 37.5 mg PO BID [facility] Last Admin: 11/27/19 21:54 Dose: 37.5 mg Documented by: Diphenhydramine HCl (Benadryl) 50 mg IM Q6H PRN PRN Reason: agitation Divalproex Sodium (Depakote Dr) 250 mg PO BID [facility] Last Admin: 11/27/19 21:56 Dose: 250 mg Documented by: Haloperidol Lactate (Haldol) 5 mg IM Q6H PRN PRN Reason: Agitation Lisinopril (Zestril) 20 mg PO DAILY [facility] Last Admin: 11/27/19 09:41 Dose: 20 mg Documented by: Lorazepam (Ativan) 2 mg IM Q6H PRN PRN Reason: Agitation Melatonin (Melatonin) 5 mg PO QHS PRN PRN Reason: Sleep Montelukast Sodium (Singulair) 10 mg PO QPM [facility] Last Admin: 11/27/19 17:30 Dose: 10 mg Documented by: Nicotine (Habitrol) 21 mg TD QDAY [facility] Last Admin: 11/27/19 09:34 Dose: 21 mg Documented by: Risperidone (Risperdal) 2 mg PO BID [facility] Last Admin: 11/27/19 21:56 Dose: 2 mg Documented by: Spironolactone (Aldactone) 25 mg PO DAILY [facility] Last Admin: 11/27/19 09:41 Dose: 25 mg Documented by: Trazodone HCl (Desyrel) 50 mg PO QHS [facility] Last Admin: 11/27/19 21:54 Dose: 50 mg Documented by: Results - Results Labs/Vitals: Laboratory Last Values WBC 8.4 K/mm3 (4.5-11.0) 11/22/19 23:07 RBC 4.15 M/mm3 (3.65-5.03) 11/22/19 23:07 Hgb 11.8 gm/dl (10.1-14.3) 11/22/19 23:07 Hct 36.7 % (30.3-42.9) 11/22/19 23:07 MCV 88 fl (79-97) 11/22/19 23:07 MCH 28 pg (28-32) 11/22/19 23:07 MCHC 32 % (30-34) 11/22/19 23:07 RDW 17.9 % (13.2-15.2) H 11/22/19 23:07 Plt Count 257 K/mm3 (140-440) 11/22/19 23:07 Lymph % (Auto) 17.8 % (13.4-35.0) 11/22/19 23:07 [place] % (Auto) 7.6 % (0.0-7.3) H 11/22/19 23:07 Eos % (Auto) 1.1 % (0.0-4.3) 11/22/19 23:07 Baso % (Auto) 0.3 % (0.0-1.8) 11/22/19 23:07 Lymph # 1.5 K/mm3 (1.2-5.4) 11/22/19 23:07 [place] # 0.6 K/mm3 (0.0-0.8) 11/22/19 23:07 Eos # 0.1 K/mm3 (0.0-0.4) 11/22/19 23:07 Baso # 0.0 K/mm3 (0.0-0.1) 11/22/19 23:07 Seg Neutrophils % 73.2 % (40.0-70.0) H 11/22/19 23:07 Seg Neutrophils # 6.2 K/mm3 (1.8-7.7) 11/22/19 23:07 Sodium 140 mmol/L (137-145) 11/22/19 23:07 Potassium 3.9 mmol/L (3.6-5.0) 11/22/19 23:07 Chloride 103.7 mmol/L (98-107) 11/22/19 23:07 Carbon Dioxide 24 mmol/L (22-30) 11/22/19 23:07 Anion Gap 16 mmol/L 11/22/19 23:07 BUN 13 mg/dL (7-17) 11/22/19 23:07 Creatinine 0.9 mg/dL (0.7-1.2) 11/22/19 23:07 Estimated GFR > 60 ml/min 11/22/19 23:07 BUN/Creatinine Ratio 14 % 11/22/19 23:07 Glucose 125 mg/dL (65-100) H 11/22/19 23:07 POC Glucose 115 (70-105) H 11/22/19 16:46 Hemoglobin A1c 4.8 % (4-6) 11/22/19 23:07 Calcium 8.7 mg/dL (8.4-10.2) 11/22/19 23:07 Triglycerides 95 mg/dL (2-149) 11/22/19 23:07 Cholesterol 151 mg/dL (50-199) 11/22/19 23:07 LDL Cholesterol Direct 106 mg/dL (50-130) 11/22/19 23:07 HDL Cholesterol 31 mg/dL (40-59) L 11/22/19 23:07 Cholesterol/HDL Ratio 4.87 % 11/22/19 23:07 TSH 2.690 mlU/mL (0.270-4.200) 11/22/19 23:07 Urine Color Yellow (Yellow) 11/25/19 Unknown Urine Turbidity Clear (Clear) 11/25/19 Unknown Urine pH 6.0 (5.0-7.0) 11/25/19 Unknown Ur Specific [place] 1.014 (1.003-1.030) 11/25/19 Unknown Urine Protein <15 mg/dl mg/dL (Negative) 11/25/19 Unknown Urine Glucose (UA) Neg mg/dL (Negative) 11/25/19 Unknown Urine Ketones Neg mg/dL (Negative) 11/25/19 Unknown Urine Blood Neg (Negative) 11/25/19 Unknown Urine Nitrite Neg (Negative) 11/25/19 Unknown Urine Bilirubin Neg (Negative) 11/25/19 Unknown Urine Urobilinogen < 2.0 mg/dL (<2.0) 11/25/19 Unknown Ur Leukocyte Esterase Lg (Negative) 11/25/19 Unknown Urine WBC (Auto) 9.0 /HPF (0.0-6.0) H 11/25/19 Unknown Urine RBC (Auto) 5.0 /HPF (0.0-6.0) 11/25/19 Unknown U Epithel Cells (Auto) 6.0 /HPF (0-13.0) 11/25/19 Unknown Urine Mucus Few /HPF 11/25/19 Unknown Last Vital Signs Temp 97.4 F L 11/27/19 06:37 Pulse 69 11/27/19 21:54 Resp 18 11/27/19 06:37 BP 139/93 11/27/19 21:54 Pulse Ox 97 11/27/19 19:02
[2019-11-28] MEDS: SPIRONOLACTONE 25 MG TAB PO SCH (10:05)
[2019-11-28] MEDS: carvediloL 25 MG TAB PO SCH ×2 (10:06→21:18)
[2019-11-28] MEDS: risperiDONE 1 MG TAB PO SCH ×2 (10:07→21:18)
[2019-11-28] MEDS: LISINOPRIL 20 MG TAB PO SCH (10:07)
[2019-11-28] MEDS: BENZTROPINE 0.5 MG TAB PO SCH (10:07)
[2019-11-28] MEDS: NICOTINE 21 MG/24 HR PATCH TD SCH (10:07)
[2019-11-28] MEDS: DIVALPROEX DR 250 MG TAB PO SCH ×2 (13:51→21:20)
[2019-11-28] MEDS: MONTELUKAST 10 MG TAB PO SCH (17:31)
[2019-11-28] MEDS: traZODone 50 MG TAB PO SCH (21:20)
--- NOTE | 2019-11-29 07:16 | Progress Note ---
Subjective Date of service: 11/29/19 Principal diagnosis: Acute Psychosis Subjective Comment: Per Psych Nurse: Patient was isolative this evening. She had the belief that she was at a plasma clinic. Even with orientation she could not accept that this is a hospital. She also at times smiled inappropriately as if responding to internal stimuli. She was medication compliant. Will continue to monitor patient for safety. Psych Progress HPI Reason for continuing inpatient treatment: Persistent delusional state, check Valproate levels today. Will continue to observe for medication efficacy and adjust as needed. MENTAL STATUS EXAMINATION General Appearance and Behavior: Age appropriate, good hygiene, wearing appropriate clothes, good eye contact, cooperativewith questioning and polite Cooperation: Participating/engaged Psychomotor Behavior: unremarkable and within normal limits Mood: "feeling better" Affect and affective range: congruent with mood Thought Process: Fluent/Logical, Circumstantial Thought Content: Within reality Speech: Normal volume, Regular rate and rhythm Intellectual Functioning: Average Suicidal Ideation: Denies SI Homicidal Ideation: Denies HI Impulse Control: Impaired Insight and Judgment:Fair insight and judgment Memory: Normal Attention: Normal Orientation: Alert, oriented Treatment Plan: Depakote increased to TID, check valproate levels today Due to the psychiatric conditions and treatment listed in the Assessment and Plan - the patient requires continued hospitalization. Will continue inpatient treatment to allow for medication adjustment and monitoring. Will continue q15 min safety checks. Will encourage the use of environmental modifications and non-pharmacologic approaches for the management of behavioral and psychological symptoms. Will continue current psych medications Monitor for medication side effects. Most recent medication adjustments: The patient will continue on medications for physical illnesses, and Hospitalist will closely monitor these Continue intensive physical and occupational therapies. Monitor patient's mood, sleep, appetite, and behavior closely. Encourage patient to participate in individual and group therapeutic sessions on the [place]. Will provide a safe and therapeutic environment for patient. The patient agreed on the treatment plan, understood the risk, benefit, alternative treatment, potential consequence of no treatment, and gave informed consent. Estimated period of time patient will need to remain in the hospital: [1] Plan for post-hospital care: [Outpatient] Medications and Allergies Allergies Allergy/AdvReac Type Severity Reaction Status Date / Time No Known Allergies Allergy Unverified 11/22/19 02:27 Home Medications Medication Instructions Recorded Confirmed Last Taken Type Aspirin 81 mg PO DAILY 11/22/19 11/23/19 Unknown History Atorvastatin [Lipitor Tab] 40 mg PO DAILY 11/22/19 11/22/19 Unknown History Benztropine [Cogentin] 1 mg PO UNK 11/22/19 11/23/19 Unknown History Nitrofurantoin Macrocrystal 100 mg PO Q12H 11/22/19 11/22/19 11/21/19 22:00 History [Nitrofurantoin] 100 MG Spironolactone [Aldactone] 25 mg PO DAILY 11/22/19 11/22/19 Unknown History carvediloL [Coreg] 37.5 mg PO BID 11/22/19 11/22/19 Unknown History lisinopriL [Zestril TAB] 20 mg PO DAILY 11/22/19 11/22/19 Unknown History Montelukast [Singulair] 10 mg PO QPM 11/23/19 11/23/19 Unknown History Active Meds: Active Medications Atorvastatin Calcium (Lipitor) 40 mg PO DAILY [facility] Last Admin: 11/28/19 10:07 Dose: 40 mg Documented by: Benztropine Mesylate (Cogentin) 0.5 mg PO DAILY [facility] Last Admin: 11/28/19 10:07 Dose: 0.5 mg Documented by: Carvedilol (Coreg) 37.5 mg PO BID [facility] Last Admin: 11/28/19 21:18 Dose: 37.5 mg Documented by: Diphenhydramine HCl (Benadryl) 50 mg IM Q6H PRN PRN Reason: agitation Divalproex Sodium (Depakote Dr) 250 mg PO TID [facility] Last Admin: 11/28/19 21:20 Dose: 250 mg Documented by: Haloperidol Lactate (Haldol) 5 mg IM Q6H PRN PRN Reason: Agitation Lisinopril (Zestril) 20 mg PO DAILY [facility] Last Admin: 11/28/19 10:07 Dose: 20 mg Documented by: Lorazepam (Ativan) 2 mg IM Q6H PRN PRN Reason: Agitation Melatonin (Melatonin) 5 mg PO QHS PRN PRN Reason: Sleep Montelukast Sodium (Singulair) 10 mg PO QPM [facility] Last Admin: 11/28/19 17:31 Dose: 10 mg Documented by: Nicotine (Habitrol) 21 mg TD QDAY [facility] Last Admin: 05/31/20 10:07 Dose: 21 mg Documented by: Risperidone (Risperdal) 2 mg PO BID [facility] Last Admin: 11/28/19 21:18 Dose: 2 mg Documented by: Spironolactone (Aldactone) 25 mg PO DAILY [facility] Last Admin: 11/28/19 10:05 Dose: 25 mg Documented by: Trazodone HCl (Desyrel) 50 mg PO QHS [facility] Last Admin: 11/28/19 21:20 Dose: 50 mg Documented by: Results - Results Labs/Vitals: Laboratory Last Values WBC 8.4 K/mm3 (4.5-11.0) 11/22/19 23:07 RBC 4.15 M/mm3 (3.65-5.03) 11/22/19 23:07 Hgb 11.8 gm/dl (10.1-14.3) 11/22/19 23:07 Hct 36.7 % (30.3-42.9) 11/22/19 23:07 MCV 88 fl (79-97) 11/22/19 23:07 MCH 28 pg (28-32) 11/22/19 23:07 MCHC 32 % (30-34) 11/22/19 23:07 RDW 17.9 % (13.2-15.2) H 11/22/19 23:07 Plt Count 257 K/mm3 (140-440) 11/22/19 23:07 Lymph % (Auto) 17.8 % (13.4-35.0) 11/22/19 23:07 [place] % (Auto) 7.6 % (0.0-7.3) H 11/22/19 23:07 Eos % (Auto) 1.1 % (0.0-4.3) 11/22/19 23:07 Baso % (Auto) 0.3 % (0.0-1.8) 11/22/19 23:07 Lymph # 1.5 K/mm3 (1.2-5.4) 11/22/19 23:07 [place] # 0.6 K/mm3 (0.0-0.8) 11/22/19 23:07 Eos # 0.1 K/mm3 (0.0-0.4) 11/22/19 23:07 Baso # 0.0 K/mm3 (0.0-0.1) 11/22/19 23:07 Seg Neutrophils % 73.2 % (40.0-70.0) H 11/22/19 23:07 Seg Neutrophils # 6.2 K/mm3 (1.8-7.7) 11/22/19 23:07 Sodium 140 mmol/L (137-145) 11/22/19 23:07 Potassium 3.9 mmol/L (3.6-5.0) 11/22/19 23:07 Chloride 103.7 mmol/L (98-107) 11/22/19 23:07 Carbon Dioxide 24 mmol/L (22-30) 11/22/19 23:07 Anion Gap 16 mmol/L 11/22/19 23:07 BUN 13 mg/dL (7-17) 11/22/19 23:07 Creatinine 0.9 mg/dL (0.7-1.2) 11/22/19 23:07 Estimated GFR > 60 ml/min 11/22/19 23:07 BUN/Creatinine Ratio 14 % 11/22/19 23:07 Glucose 125 mg/dL (65-100) H 11/22/19 23:07 POC Glucose 115 (70-105) H 11/22/19 16:46 Hemoglobin A1c 4.8 % (4-6) 11/22/19 23:07 Calcium 8.7 mg/dL (8.4-10.2) 11/22/19 23:07 Triglycerides 95 mg/dL (2-149) 11/22/19 23:07 Cholesterol 151 mg/dL (50-199) 11/22/19 23:07 LDL Cholesterol Direct 106 mg/dL (50-130) 11/22/19 23:07 HDL Cholesterol 31 mg/dL (40-59) L 11/22/19 23:07 Cholesterol/HDL Ratio 4.87 % 11/22/19 23:07 TSH 2.690 mlU/mL (0.270-4.200) 11/22/19 23:07 Urine Color Yellow (Yellow) 11/25/19 Unknown Urine Turbidity Clear (Clear) 11/25/19 Unknown Urine pH 6.0 (5.0-7.0) 11/25/19 Unknown Ur Specific [place] 1.014 (1.003-1.030) 11/25/19 Unknown Urine Protein <15 mg/dl mg/dL (Negative) 11/25/19 Unknown Urine Glucose (UA) Neg mg/dL (Negative) 11/25/19 Unknown Urine Ketones Neg mg/dL (Negative) 11/25/19 Unknown Urine Blood Neg (Negative) 11/25/19 Unknown Urine Nitrite Neg (Negative) 11/25/19 Unknown Urine Bilirubin Neg (Negative) 11/25/19 Unknown Urine Urobilinogen < 2.0 mg/dL (<2.0) 11/25/19 Unknown Ur Leukocyte Esterase Lg (Negative) 11/25/19 Unknown Urine WBC (Auto) 9.0 /HPF (0.0-6.0) H 11/25/19 Unknown Urine RBC (Auto) 5.0 /HPF (0.0-6.0) 11/25/19 Unknown U Epithel Cells (Auto) 6.0 /HPF (0-13.0) 11/25/19 Unknown Urine Mucus Few /HPF 11/25/19 Unknown Valproic Acid 30.5 ug/mL (50-100) L 11/28/19 08:33 Last Vital Signs Temp 98.2 F 11/28/19 22:00 Pulse 74 11/28/19 21:18 Resp 18 11/28/19 22:00 BP 149/101 11/28/19 21:18 Pulse Ox 96 11/28/19 19:23
[2019-11-29] MEDS: NICOTINE 21 MG/24 HR PATCH TD SCH (09:56)
[2019-11-29] MEDS: DIVALPROEX DR 250 MG TAB PO SCH ×2 (09:57→21:32)
[2019-11-29] MEDS: risperiDONE 1 MG TAB PO SCH ×2 (09:57→21:32)
[2019-11-29] MEDS: SPIRONOLACTONE 25 MG TAB PO SCH (09:57)
[2019-11-29] MEDS: LISINOPRIL 20 MG TAB PO SCH (09:57)
[2019-11-29] MEDS: hydrALAZINE 25 MG TAB PO SCH ×3 (09:57→21:29)
[2019-11-29] MEDS: BENZTROPINE 0.5 MG TAB PO SCH (09:58)
[2019-11-29] MEDS: carvediloL 25 MG TAB PO SCH ×2 (10:11→21:30)
[2019-11-29] MEDS: MONTELUKAST 10 MG TAB PO SCH (17:03)
[2019-11-29] MEDS: traZODone 50 MG TAB PO SCH (21:32)
[2019-11-30] MEDS: hydrALAZINE 25 MG TAB PO SCH ×3 (05:57→21:56)
--- NOTE | 2019-11-30 07:17 | Progress Note ---
Subjective Date of service: 11/30/19 Principal diagnosis: Acute Psychosis Subjective Comment: Per Psych Nurse: pt is alert and oriented x2, calm and cooperative, withdrawn to self, medication compliant, good appetite, mood is stable, bright affect, no distress noted, no complaints voiced, will monitor for safety. Psych Progress HPI Patient seen this AM in bed, sleeping heavy but arrousable. Reports shes good, sleeping and eat well and has no complaints today. Reason for continuing inpatient treatment: Valproate levels below therapeutic, meds was increased ysday. Will continue to observe for medication efficacy and adjust as needed. MENTAL STATUS EXAMINATION General Appearance and Behavior: Age appropriate, good hygiene, wearing appropriate clothes, good eye contact, cooperativewith questioning and polite Cooperation: Participating/engaged Psychomotor Behavior: unremarkable and within normal limits Mood: "feeling better" Affect and affective range: congruent with mood Thought Process: Fluent/Logical, Circumstantial Thought Content: Within reality Speech: Normal volume, Regular rate and rhythm Intellectual Functioning: Average Suicidal Ideation: Denies SI Homicidal Ideation: Denies HI Impulse Control: Impaired Insight and Judgment:Fair insight and judgment Memory: Normal Attention: Normal Orientation: Alert, oriented Treatment Plan: Depakote increased to500 mg BIDDue to the psychiatric conditions and treatment listed in the Assessment and Plan - the patient requires continued hospitalization. Will continue inpatient treatment to allow for medication adjustment and monitoring. Will continue q15 min safety checks. Will encourage the use of environmental modifications and non-pharmacologic approaches for the management of behavioral and psychological symptoms. Will continue current psych medications Monitor for medication side effects. Most recent medication adjustments: The patient will continue on medications for physical illnesses, and Hospitalist will closely monitor these Continue intensive physical and occupational therapies. Monitor patient's mood, sleep, appetite, and behavior closely. Encourage patient to participate in individual and group therapeutic sessions on the [place]. Will provide a safe and therapeutic environment for patient. The patient agreed on the treatment plan, understood the risk, benefit, alterna tive treatment, potential consequence of no treatment, and gave informed consent. Estimated period of time patient will need to remain in the hospital: [1] Plan for post-hospital care: [Outpatient] Medications and Allergies Allergies Allergy/AdvReac Type Severity Reaction Status Date / Time No Known Allergies Allergy Unverified 11/22/19 02:27 Home Medications Medication Instructions Recorded Confirmed Last Taken Type Aspirin 81 mg PO DAILY 11/22/19 11/23/19 Unknown History Atorvastatin [Lipitor Tab] 40 mg PO DAILY 11/22/19 11/22/19 Unknown History Benztropine [Cogentin] 1 mg PO UNK 11/22/19 11/23/19 Unknown History Nitrofurantoin Macrocrystal 100 mg PO Q12H 11/22/19 11/22/19 11/21/19 22:00 History [Nitrofurantoin] 100 MG Spironolactone [Aldactone] 25 mg PO DAILY 11/22/19 11/22/19 Unknown History carvediloL [Coreg] 37.5 mg PO BID 11/22/19 11/22/19 Unknown History lisinopriL [Zestril TAB] 20 mg PO DAILY 11/22/19 11/22/19 Unknown History Montelukast [Singulair] 10 mg PO QPM 11/23/19 11/23/19 Unknown History Active Meds: Active Medications Atorvastatin Calcium (Lipitor) 40 mg PO DAILY [facility] Last Admin: 11/29/19 09:57 Dose: 40 mg Documented by: Benztropine Mesylate (Cogentin) 0.5 mg PO DAILY [facility] Last Admin: 11/29/19 09:58 Dose: 0.5 mg Documented by: Carvedilol (Coreg) 37.5 mg PO BID [facility] Last Admin: 11/29/19 21:30 Dose: 37.5 mg Documented by: Diphenhydramine HCl (Benadryl) 50 mg IM Q6H PRN PRN Reason: agitation Divalproex Sodium (Depakote Dr) 500 mg PO BID [facility] Last Admin: 11/29/19 21:32 Dose: 500 mg Documented by: Haloperidol Lactate (Haldol) 5 mg IM Q6H PRN PRN Reason: Agitation Hydralazine HCl (Apresoline) 25 mg PO Q8HR [facility] Last Admin: 11/30/19 05:57 Dose: 25 mg Documented by: Lisinopril (Zestril) 20 mg PO DAILY [facility] Last Admin: 11/29/19 09:57 Dose: 20 mg Documented by: Lorazepam (Ativan) 2 mg IM Q6H PRN PRN Reason: Agitation Melatonin (Melatonin) 5 mg PO QHS PRN PRN Reason: Sleep Montelukast Sodium (Singulair) 10 mg PO QPM [facility] Last Admin: 11/29/19 17:03 Dose: 10 mg Documented by: Nicotine (Habitrol) 21 mg TD QDAY [facility] Last Admin: 11/29/19 09:56 Dose: 21 mg Documented by: Risperidone (Risperdal) 2 mg PO BID [facility] Last Admin: 11/29/19 21:32 Dose: 2 mg Documented by: Spironolactone (Aldactone) 25 mg PO DAILY [facility] Last Admin: 11/29/19 09:57 Dose: 25 mg Documented by: Trazodone HCl (Desyrel) 50 mg PO QHS [facility] Last Admin: 11/29/19 21:32 Dose: 50 mg Documented by: Results - Results Labs/Vitals: Laboratory Last Values WBC 8.4 K/mm3 (4.5-11.0) 11/22/19 23:07 RBC 4.15 M/mm3 (3.65-5.03) 11/22/19 23:07 Hgb 11.8 gm/dl (10.1-14.3) 11/22/19 23:07 Hct 36.7 % (30.3-42.9) 11/22/19 23:07 MCV 88 fl (79-97) 11/22/19 23:07 MCH 28 pg (28-32) 11/22/19 23:07 MCHC 32 % (30-34) 11/22/19 23:07 RDW 17.9 % (13.2-15.2) H 11/22/19 23:07 Plt Count 257 K/mm3 (140-440) 11/22/19 23:07 Lymph % (Auto) 17.8 % (13.4-35.0) 11/22/19 23:07 [place] % (Auto) 7.6 % (0.0-7.3) H 11/22/19 23:07 Eos % (Auto) 1.1 % (0.0-4.3) 11/22/19 23:07 Baso % (Auto) 0.3 % (0.0-1.8) 11/22/19 23:07 Lymph # 1.5 K/mm3 (1.2-5.4) 11/22/19 23:07 [place] # 0.6 K/mm3 (0.0-0.8) 11/22/19 23:07 Eos # 0.1 K/mm3 (0.0-0.4) 11/22/19 23:07 Baso # 0.0 K/mm3 (0.0-0.1) 11/22/19 23:07 Seg Neutrophils % 73.2 % (40.0-70.0) H 11/22/19 23:07 Seg Neutrophils # 6.2 K/mm3 (1.8-7.7) 11/22/19 23:07 Sodium 140 mmol/L (137-145) 11/22/19 23:07 Potassium 3.9 mmol/L (3.6-5.0) 11/22/19 23:07 Chloride 103.7 mmol/L (98-107) 11/22/19 23:07 Carbon Dioxide 24 mmol/L (22-30) 11/22/19 23:07 Anion Gap 16 mmol/L 11/22/19 23:07 BUN 13 mg/dL (7-17) 11/22/19 23:07 Creatinine 0.9 mg/dL (0.7-1.2) 11/22/19 23:07 Estimated GFR > 60 ml/min 11/22/19 23:07 BUN/Creatinine Ratio 14 % 11/22/19 23:07 Glucose 125 mg/dL (65-100) H 11/22/19 23:07 POC Glucose 115 (70-105) H 11/22/19 16:46 Hemoglobin A1c 4.8 % (4-6) 11/22/19 23:07 Calcium 8.7 mg/dL (8.4-10.2) 11/22/19 23:07 Triglycerides 95 mg/dL (2-149) 11/22/19 23:07 Cholesterol 151 mg/dL (50-199) 11/22/19 23:07 LDL Cholesterol Direct 106 mg/dL (50-130) 11/22/19 23:07 HDL Cholesterol 31 mg/dL (40-59) L 11/22/19 23:07 Cholesterol/HDL Ratio 4.87 % 11/22/19 23:07 TSH 2.690 mlU/mL (0.270-4.200) 11/22/19 23:07 Urine Color Yellow (Yellow) 11/25/19 Unknown Urine Turbidity Clear (Clear) 11/25/19 Unknown Urine pH 6.0 (5.0-7.0) 11/25/19 Unknown Ur Specific [place] 1.014 (1.003-1.030) 11/25/19 Unknown Urine Protein <15 mg/dl mg/dL (Negative) 11/25/19 Unknown Urine Glucose (UA) Neg mg/dL (Negative) 11/25/19 Unknown Urine Ketones Neg mg/dL (Negative) 11/25/19 Unknown Urine Blood Neg (Negative) 11/25/19 Unknown Urine Nitrite Neg (Negative) 11/25/19 Unknown Urine Bilirubin Neg (Negative) 11/25/19 Unknown Urine Urobilinogen < 2.0 mg/dL (<2.0) 11/25/19 Unknown Ur Leukocyte Esterase Lg (Negative) 11/25/19 Unknown Urine WBC (Auto) 9.0 /HPF (0.0-6.0) H 11/25/19 Unknown Urine RBC (Auto) 5.0 /HPF (0.0-6.0) 11/25/19 Unknown U Epithel Cells (Auto) 6.0 /HPF (0-13.0) 11/25/19 Unknown Urine Mucus Few /HPF 11/25/19 Unknown Valproic Acid 30.5 ug/mL (50-100) L 11/28/19 08:33 Last Vital Signs Temp 98.6 F 11/29/19 19:37 Pulse 70 11/30/19 05:57 Resp 20 11/29/19 19:37 BP 113/67 11/30/19 05:57 Pulse Ox 95 11/29/19 19:37
[2019-11-30] MEDS: risperiDONE 1 MG TAB PO SCH ×2 (12:18→21:54)
[2019-11-30] MEDS: LISINOPRIL 20 MG TAB PO SCH (12:18)
[2019-11-30] MEDS: BENZTROPINE 0.5 MG TAB PO SCH (12:18)
[2019-11-30] MEDS: DIVALPROEX DR 250 MG TAB PO SCH ×2 (12:18→21:56)
[2019-11-30] MEDS: SPIRONOLACTONE 25 MG TAB PO SCH (12:18)
[2019-11-30] MEDS: carvediloL 25 MG TAB PO SCH ×2 (12:19→21:54)
[2019-11-30] MEDS: NICOTINE 21 MG/24 HR PATCH TD SCH (12:25)
[2019-11-30] MEDS: MONTELUKAST 10 MG TAB PO SCH (18:16)
[2019-11-30] MEDS: traZODone 50 MG TAB PO SCH (21:57)
[2019-12-01] MEDS: hydrALAZINE 25 MG TAB PO SCH ×2 (06:25→14:19)
--- NOTE | 2019-12-01 07:18 | Progress Note ---
Subjective Date of service: 12/01/19 Principal diagnosis: Acute Psychosis Subjective Comment: Per Psych Nurse: Patient had refused her vital signs taken this morning also refused the medication , this morning. patient came to eat lunch in the dinning room importance of having the vital signs done and medication stressed , aggreed , vital signa done and scheduled medications given po. but refused the nicotine patch went back to her room will continue to monitor patient. Psych Progress HPI Patient reports sleeping well, all smiley, quiet and keeping to herself in the breakfast, denies having any plan for today, no AVH and has been medication compliant. Patient also says she does not have any complaints and not having any intrusive thoughts Reason for continuing inpatient treatment: Patient has baseline neurocognitive deficit, but has been nice, non aggressive and no distrubances. Plan to discharge today. MENTAL STATUS EXAMINATION General Appearance and Behavior: Age appropriate, good hygiene, wearing appropriate clothes, good eye contact, cooperativewith questioning and polite Cooperation: Participating/engaged Psychomotor Behavior: unremarkable and within normal limits Mood: "feeling better" Affect and affective range: congruent with mood Thought Process: Fluent/Logical, Circumstantial Thought Content: Within reality Speech: Normal volume, Regular rate and rhythm Intellectual Functioning: Average Suicidal Ideation: Denies SI Homicidal Ideation: Denies HI Impulse Control: Impaired Insight and Judgment:Fair insight and judgment Memory: Normal Attention: Normal Orientation: Alert, oriented Treatment Plan: Depakote increased to500 mg BIDDue to the psychiatric conditions and treatment listed in the Assessment and Plan - the patient requires continued hospitalization. Will continue inpatient treatment to allow for medication adjustment and monitoring. Will continue q15 min safety checks. Will encourage the use of environmental modifications and non-pharmacologic approaches for the management of behavioral and psychological symptoms. Will continue current psych medications Monitor for medication side effects. Most recent medication adjustments: The patient will continue on medications for physical illnesses, and Hospitalist will closely monitor these Continue intensive physical and occupational therapies. Monitor patient's mood, sleep, appetite, and behavior closely. Encourage patient to participate in individual and group therapeutic sessions on the [place]. Will provide a safe and therapeutic environment for patient. The patient agreed on the treatment plan, understood the risk, benefit, alternative treatment, potential consequence of no treatment, and gave informed consent. Estimated period of time patient will need to remain in the hospital: [1] Plan for post-hospital care: [Outpatient] Medications and Allergies Allergies Allergy/AdvReac Type Severity Reaction Status Date / Time No Known Allergies Allergy Unverified 11/22/19 02:27 Home Medications Medication Instructions Recorded Confirmed Last Taken Type Aspirin 81 mg PO DAILY 11/22/19 11/23/19 Unknown History Atorvastatin [Lipitor Tab] 40 mg PO DAILY 11/22/19 11/22/19 Unknown History Benztropine [Cogentin] 1 mg PO UNK 11/22/19 11/23/19 Unknown History Nitrofurantoin Macrocrystal 100 mg PO Q12H 11/22/19 11/22/19 11/21/19 22:00 History [Nitrofurantoin] 100 MG Spironolactone [Aldactone] 25 mg PO DAILY 11/22/19 11/22/19 Unknown History carvediloL [Coreg] 37.5 mg PO BID 11/22/19 11/22/19 Unknown History lisinopriL [Zestril TAB] 20 mg PO DAILY 11/22/19 11/22/19 Unknown History Montelukast [Singulair] 10 mg PO QPM 11/23/19 11/23/19 Unknown History Active Meds: Active Medications Atorvastatin Calcium (Lipitor) 40 mg PO DAILY [facility] Last Admin: 11/30/19 12:18 Dose: 40 mg Documented by: Benztropine Mesylate (Cogentin) 0.5 mg PO DAILY [facility] Last Admin: 11/30/19 12:18 Dose: 0.5 mg Documented by: Carvedilol (Coreg) 37.5 mg PO BID [facility] Last Admin: 11/30/19 21:54 Dose: 37.5 mg Documented by: Diphenhydramine HCl (Benadryl) 50 mg IM Q6H PRN PRN Reason: agitation Divalproex Sodium (Depakote Dr) 500 mg PO BID [facility] Last Admin: 11/30/19 21:56 Dose: 500 mg Documented by: Haloperidol Lactate (Haldol) 5 mg IM Q6H PRN PRN Reason: Agitation Hydralazine HCl (Apresoline) 25 mg PO Q8HR [facility] Last Admin: 12/01/19 06:25 Dose: 25 mg Documented by: Lisinopril (Zestril) 20 mg PO DAILY [facility] Last Admin: 11/30/19 12:18 Dose: 20 mg Documented by: Lorazepam (Ativan) 2 mg IM Q6H PRN PRN Reason: Agitation Melatonin (Melatonin) 5 mg PO QHS PRN PRN Reason: Sleep Montelukast Sodium (Singulair) 10 mg PO QPM [facility] Last Admin: 11/30/19 18:16 Dose: 10 mg Documented by: Nicotine (Habitrol) 21 mg TD QDAY [facility] Last Admin: 11/30/19 12:25 Dose: Not Given Documented by: Risperidone (Risperdal) 2 mg PO BID [facility] Last Admin: 11/30/19 21:54 Dose: 2 mg Documented by: Spironolactone (Aldactone) 25 mg PO DAILY [facility] Last Admin: 11/30/19 12:18 Dose: 25 mg Documented by: Trazodone HCl (Desyrel) 50 mg PO QHS [facility] Last Admin: 11/30/19 21:57 Dose: 50 mg Documented by: Results - Results Labs/Vitals: Laboratory Last Values WBC 8.4 K/mm3 (4.5-11.0) 11/22/19 23:07 RBC 4.15 M/mm3 (3.65-5.03) 11/22/19 23:07 Hgb 11.8 gm/dl (10.1-14.3) 11/22/19 23:07 Hct 36.7 % (30.3-42.9) 11/22/19 23:07 MCV 88 fl (79-97) 11/22/19 23:07 MCH 28 pg (28-32) 11/22/19 23:07 MCHC 32 % (30-34) 11/22/19 23:07 RDW 17.9 % (13.2-15.2) H 11/22/19 23:07 Plt Count 257 K/mm3 (140-440) 11/22/19 23:07 Lymph % (Auto) 17.8 % (13.4-35.0) 11/22/19 23:07 [place] % (Auto) 7.6 % (0.0-7.3) H 11/22/19 23:07 Eos % (Auto) 1.1 % (0.0-4.3) 11/22/19 23:07 Baso % (Auto) 0.3 % (0.0-1.8) 11/22/19 23:07 Lymph # 1.5 K/mm3 (1.2-5.4) 11/22/19 23:07 [place] # 0.6 K/mm3 (0.0-0.8) 11/22/19 23:07 Eos # 0.1 K/mm3 (0.0-0.4) 11/22/19 23:07 Baso # 0.0 K/mm3 (0.0-0.1) 11/22/19 23:07 Seg Neutrophils % 73.2 % (40.0-70.0) H 11/22/19 23:07 Seg Neutrophils # 6.2 K/mm3 (1.8-7.7) 11/22/19 23:07 Sodium 140 mmol/L (137-145) 11/22/19 23:07 Potassium 3.9 mmol/L (3.6-5.0) 11/22/19 23:07 Chloride 103.7 mmol/L (98-107) 11/22/19 23:07 Carbon Dioxide 24 mmol/L (22-30) 11/22/19 23:07 Anion Gap 16 mmol/L 11/22/19 23:07 BUN 13 mg/dL (7-17) 11/22/19 23:07 Creatinine 0.9 mg/dL (0.7-1.2) 11/22/19 23:07 Estimated GFR > 60 ml/min 11/22/19 23:07 BUN/Creatinine Ratio 14 % 11/22/19 23:07 Glucose 125 mg/dL (65-100) H 11/22/19 23:07 POC Glucose 115 (70-105) H 11/22/19 16:46 Hemoglobin A1c 4.8 % (4-6) 11/22/19 23:07 Calcium 8.7 mg/dL (8.4-10.2) 11/22/19 23:07 Triglycerides 95 mg/dL (2-149) 11/22/19 23:07 Cholesterol 151 mg/dL (50-199) 11/22/19 23:07 LDL Cholesterol Direct 106 mg/dL (50-130) 11/22/19 23:07 HDL Cholesterol 31 mg/dL (40-59) L 11/22/19 23:07 Cholesterol/HDL Ratio 4.87 % 11/22/19 23:07 TSH 2.690 mlU/mL (0.270-4.200) 11/22/19 23:07 Urine Color Yellow (Yellow) 11/25/19 Unknown Urine Turbidity Clear (Clear) 11/25/19 Unknown Urine pH 6.0 (5.0-7.0) 11/25/19 Unknown Ur Specific [place] 1.014 (1.003-1.030) 11/25/19 Unknown Urine Protein <15 mg/dl mg/dL (Negative) 11/25/19 Unknown Urine Glucose (UA) Neg mg/dL (Negative) 11/25/19 Unknown Urine Ketones Neg mg/dL (Negative) 11/25/19 Unknown Urine Blood Neg (Negative) 11/25/19 Unknown Urine Nitrite Neg (Negative) 11/25/19 Unknown Urine Bilirubin Neg (Negative) 11/25/19 Unknown Urine Urobilinogen < 2.0 mg/dL (<2.0) 11/25/19 Unknown Ur Leukocyte Esterase Lg (Negative) 11/25/19 Unknown Urine WBC (Auto) 9.0 /HPF (0.0-6.0) H 11/25/19 Unknown Urine RBC (Auto) 5.0 /HPF (0.0-6.0) 11/25/19 Unknown U Epithel Cells (Auto) 6.0 /HPF (0-13.0) 11/25/19 Unknown Urine Mucus Few /HPF 11/25/19 Unknown Valproic Acid 30.5 ug/mL (50-100) L 11/28/19 08:33 Last Vital Signs Temp 97.9 F 11/30/19 20:05 Pulse 71 12/01/19 06:25 Resp 18 11/30/19 20:05 BP 132/81 12/01/19 06:25 Pulse Ox 95 11/30/19 20:05
[2019-12-01] MEDS: carvediloL 25 MG TAB PO SCH (11:54)
[2019-12-01] MEDS: DIVALPROEX DR 250 MG TAB PO SCH (11:54)
[2019-12-01] MEDS: BENZTROPINE 0.5 MG TAB PO SCH (11:56)
[2019-12-01] MEDS: NICOTINE 21 MG/24 HR PATCH TD SCH (11:56)
[2019-12-01] MEDS: SPIRONOLACTONE 25 MG TAB PO SCH (11:56)
[2019-12-01] MEDS: LISINOPRIL 20 MG TAB PO SCH (11:58)
[2019-12-01] MEDS: risperiDONE 1 MG TAB PO SCH (12:02)
--- NOTE | 2019-12-01 12:27 | Discharge Summary ---
Providers - Providers Date of Admission: 11/22/19 02:11 Date of discharge: 12/01/19 Attending physician: LONNY CADET MD 11/22/19 02:45 Consult to Physician [CONS] Routine Comment: Consulting Provider: ENA CASTILLO Physician Instructions: Reason For Exam: H&P MEDICAL MGMT Primary care physician: ASSISTANT LABORATORY DIRECTOR Hospitalization Reason for admission: Danger to self, Failure of Outpatient Treatment Condition: Good Hospital course: The patient was provided inpatient psychiatric treatment with safe and supportive environment, group/individual therapy, psychiatric medication, medication adjustment, adverse effect monitor, medical evaluation, medical treatment, social service assessment, social support meeting, placement assessment and psycho-education. The patients mood, cognition, behavior, motivation, compliance to treatment and appreciation on family/social support are improved and stabilized. At the time of discharge, the patient had no suicidal ideas, no homicidal ideas, no aggressive thoughts, no endangering behavior and no debilitating adverse effects. The patient agreed on the treat ment plan, understood the risk, benefit, alternative treatment, potential consequence of no treatment, and gave informed consent. Disposition: DC-30 STILL A PATIENT Allergies/Adverse Reactions: Allergies No Known Allergies Allergy (Unverified 11/22/19 02:27) Vital Signs: Last Vital Signs Temp 97.4 F L 12/01/19 07:37 Pulse 85 12/01/19 11:58 Resp 18 12/01/19 07:37 BP 157/88 12/01/19 11:58 Pulse Ox 93 12/01/19 07:37 Last Lab: Laboratory Last Values WBC 8.4 K/mm3 (4.5-11.0) 11/22/19 23:07 RBC 4.15 M/mm3 (3.65-5.03) 11/22/19 23:07 Hgb 11.8 gm/dl (10.1-14.3) 11/22/19 23:07 Hct 36.7 % (30.3-42.9) 11/22/19 23:07 MCV 88 fl (79-97) 11/22/19 23:07 MCH 28 pg (28-32) 11/22/19 23:07 MCHC 32 % (30-34) 11/22/19 23:07 RDW 17.9 % (13.2-15.2) H 11/22/19 23:07 Plt Count 257 K/mm3 (140-440) 11/22/19 23:07 Lymph % (Auto) 17.8 % (13.4-35.0) 11/22/19 23:07 Jack % (Auto) 7.6 % (0.0-7.3) H 11/22/19 23:07 Eos % (Auto) 1.1 % (0.0-4.3) 11/22/19 23:07 Baso % (Auto) 0.3 % (0.0-1.8) 11/22/19 23:07 Lymph # 1.5 K/mm3 (1.2-5.4) 11/22/19 23:07 Jack # 0.6 K/mm3 (0.0-0.8) 11/22/19 23:07 Eos # 0.1 K/mm3 (0.0-0.4) 11/22/19 23:07 Baso # 0.0 K/mm3 (0.0-0.1) 11/22/19 23:07 Seg Neutrophils % 73.2 % (40.0-70.0) H 11/22/19 23:07 Seg Neutrophils # 6.2 K/mm3 (1.8-7.7) 11/22/19 23:07 Sodium 140 mmol/L (137-145) 11/22/19 23:07 Potassium 3.9 mmol/L (3.6-5.0) 11/22/19 23:07 Chloride 103.7 mmol/L (98-107) 11/22/19 23:07 Carbon Dioxide 24 mmol/L (22-30) 11/22/19 23:07 Anion Gap 16 mmol/L 11/22/19 23:07 BUN 13 mg/dL (7-17) 11/22/19 23:07 Creatinine 0.9 mg/dL (0.7-1.2) 11/22/19 23:07 Estimated GFR > 60 ml/min 11/22/19 23:07 BUN/Creatinine Ratio 14 % 11/22/19 23:07 Glucose 125 mg/dL (65-100) H 11/22/19 23:07 POC Glucose 115 (70-105) H 11/22/19 16:46 Hemoglobin A1c 4.8 % (4-6) 11/22/19 23:07 Calcium 8.7 mg/dL (8.4-10.2) 11/22/19 23:07 Triglycerides 95 mg/dL (2-149) 11/22/19 23:07 Cholesterol 151 mg/dL (50-199) 11/22/19 23:07 LDL Cholesterol Direct 106 mg/dL (50-130) 11/22/19 23:07 HDL Cholesterol 31 mg/dL (40-59) L 11/22/19 23:07 Cholesterol/HDL Ratio 4.87 % 11/22/19 23:07 TSH 2.690 mlU/mL (0.270-4.200) 11/22/19 23:07 Urine Color Yellow (Yellow) 11/25/19 Unknown Urine Turbidity Clear (Clear) 11/25/19 Unknown Urine pH 6.0 (5.0-7.0) 11/25/19 Unknown Ur Specific [place] 1.014 (1.003-1.030) 11/25/19 Unknown Urine Protein <15 mg/dl mg/dL (Negative) 11/25/19 Unknown Urine Glucose (UA) Neg mg/dL (Negative) 11/25/19 Unknown Urine Ketones Neg mg/dL (Negative) 11/25/19 Unknown Urine Blood Neg (Negative) 11/25/19 Unknown Urine Nitrite Neg (Negative) 11/25/19 Unknown Urine Bilirubin Neg (Negative) 11/25/19 Unknown Urine Urobilinogen < 2.0 mg/dL (<2.0) 11/25/19 Unknown Ur Leukocyte Esterase Lg (Negative) 11/25/19 Unknown Urine WBC (Auto) 9.0 /HPF (0.0-6.0) H 11/25/19 Unknown Urine RBC (Auto) 5.0 /HPF (0.0-6.0) 11/25/19 Unknown U Epithel Cells (Auto) 6.0 /HPF (0-13.0) 11/25/19 Unknown Urine Mucus Few /HPF 11/25/19 Unknown Valproic Acid 63.9 ug/mL (50-100) 12/01/19 09:47 Core Measure Documentation - Palliative Care Palliative Care/ Comfort Measures: Not Applicable - Core Measures Any of the following diagnoses?: none Exam - Constitutional Vitals: Temp Pulse Resp BP Pulse Ox 97.4 F L 85 18 157/88 93 12/01/19 07:37 12/01/19 11:58 12/01/19 07:37 12/01/19 11:58 12/01/19 07:37 - EENT Eyes: Present: PERRL, EOM intact ENT: hearing intact, clear oral mucosa - Neck Neck: Present: supple, normal ROM - Respiratory Respiratory effort: normal - Abdominal Female genitourinary: Present: normal - Integumentary Integumentary: Present: clear, warm, dry Plan Care Plan Goals: Goals: Maintain good and stable mental health. Plan of Treatment: The patient should be compliant with medications, not to use drugs and not to drink alcohol. The patient understands that if suicidal ideas, homicidal ideas, or any endangering thoughts arise, the patient should immediately seek for emergent assistance including but not limited to crisis hot line and emergency room. Follow up with outpatient Psychiatrist and PCP within 7 - 14 days of discharge. Follow up with: PRIMARY CARE, [Primary Care Provider] - 7 Days Prescriptions: traZODone [Desyrel] 50 mg PO QHS #30 tablet Divalproex [Becky Kincaid] 500 mg PO BID #60 tablet risperiDONE [RisperDAL] 2 mg PO BID #60 tablet
[2019-12-01 14:19] VITALS: BP 148/70
[2019-12-01] MEDS: MONTELUKAST 10 MG TAB PO SCH (17:04)
== END 2019-12-01 21:08 | disposition home or self-care (01) | DRG 885 ==
LOC: 5A 02:11
PROVIDERS: ADMIT Psychiatry & Neurology Psychiatry; ATTEND Psychiatry & Neurology Psychiatry
DX: F23 Brief psychotic disorder (principal); N30.00 Acute cystitis without hematuria; Z68.43 Body mass index [BMI] 50.0-59.9, adult; E66.9 Obesity, unspecified; Z79.82 Long term (current) use of aspirin; Z79.899 Other long term (current) drug therapy; F25.9 Schizoaffective disorder, unspecified; I10 Essential (primary) hypertension; E78.5 Hyperlipidemia, unspecified
CPT/HCPCS: 36415; 80048; 80061; 80164; 81001; 82962; 83036; 84443; 85025; 87086; G0378; A9270-GY